=== PATIENT | female | born 1995 | race Caucasian/White ===

== ENCOUNTER → 2016-09-29 | Outpatient (REF) ==
[~2016-09-29] MED LIST: BACTRIM DS 8001 TAB PO; CEFTIN 250250 MG/TAB PO; GILDESS FE 1.5/1 TAB PO
== END ==
LOC: WSOH 08:17 → WSPT 08:30
DX: Z02.1 Encounter for pre-employment examination (principal)

== ENCOUNTER → 2016-10-01 | Outpatient (REF) | LOC: WSOH 12:03 | DX: Z02.89 Encounter for other administrative examinations (principal) ==

== ENCOUNTER → 2016-10-01 | Outpatient (REF) | LOC: WSOH 10:10 | DX: Z23 Encounter for immunization (principal) ==

== ENCOUNTER → 2016-11-02 | Outpatient (REF) | LOC: WSOH 08:51 | DX: Z01.84 Encounter for antibody response examination (principal) ==

== ENCOUNTER 2020-08-12 22:56 | Emergency (ER) | payer BC ==
[~2020-08-12] VITALS: Ht 157.5 cm; Wt 59.1 kg
[2020-08-12 23:36] VITALS: TEMP 98.2
[2020-08-13 02:07] LABS: BASO % 0.1 % (0.0-2.0); GRAN # 8.5 (1.4-6.5); GRAN % 85.4 % (42.2-75.2); HEMATOCRIT 37.7 % (37.0-47.0); HEMOGLOBIN 12.9 g/dl (12.5-16.0); LYMPH # 1.1 (1.2-3.4); LYMPH % 10.9 % (20.0-51.0); MEAN CELL VOLUME 94 fl (80.0-100.0); MEAN CORPUSCULAR HEMOGLOBIN 32 pg (27.0-31.0); MEAN CORPUSCULAR HGB CONC 34 g/dl (33.0-37.0); MEAN PLATELET VOLUME 8.7 fl (7.4-10.4); MONO # 0.3 (0.1-0.6); MONO % 3.2 % (1.7-9.3); PLATELET COUNT 212 K/mm3 (130-400); RED BLOOD COUNT 4.03 M/mm3 (4.10-5.30); REDCELL DISTRIBUTION WIDTH-CV 12.4 % (11.5-14.5)
[2020-08-13 02:21] LABS: ALBUMIN 4.1 gm/dL (3.5-5.0); BILIRUBIN,TOTAL 0.3 mg/dL (0.0-1.0); C-REACTIVE PROTEIN 0.7 mg/dL (0.0-0.9); CREATININE, serum 0.42 (0.52-1.25); POTASSIUM 3.8 mmol/L (3.4-5.0); TOTAL PROTEIN 7.2 gm/dL (6.4-8.2)
[2020-08-13 03:26] VITALS: BP 112/78; PULSE 79
[2021-01-26] MEDS ORDERED: PRENATAL TABLET PO (06:56)
== END 2020-08-13 03:26 | disposition home or self-care (01) ==
LOC: COL.ER 22:56
PROVIDERS: Emergency Medicine
DX: O21.9 Vomiting of pregnancy, unspecified (principal); O26.892 Other specified pregnancy related conditions, second trimester; R51.9 Headache, unspecified; R10.30 Lower abdominal pain, unspecified; Z3A.16 16 weeks gestation of pregnancy; Z88.1 Allergy status to other antibiotic agents
CPT/HCPCS: J2405; J2550; J7030

== ENCOUNTER 2021-01-27 03:17 | Inpatient (IN) | payer BC ==
[2021-01-27] VITALS (45 sets, daily range): BP systolic 87–146; BP diastolic 50–87; PULSE 10–113; TEMP 96.3–98.2
[~2021-01-27] VITALS: Ht 152.5 cm; Wt 76.8 kg
[~2021-01-27 03:17] MED LIST changes: +PRENATAL TABLET PO
--- NOTE | 2021-01-27 03:20 | NUR ---
Ambulatory to unit for labor assessment, accompanied by FOB. Pt reports contractions have continued all day "but now they are stronger". Oriented to room, monitor, plan of care. Questions invited and answered. Pt tense, shaking
[2021-01-27 04:28] LABS: BASO % 0.2 % (0.0-2.0); EOS % 0.2 % (0-4.0); GRAN # 7.4 K/mm3 (1.4-6.5); GRAN % 77.3 % (42.2-75.2); HEMOGLOBIN 12.5 g/dl (12.5-16.0); LYMPH # 1.5 K/mm3 (1.2-3.4); MEAN CELL VOLUME 93 fl (80.0-100.0); MEAN CORPUSCULAR HEMOGLOBIN 33 pg (27.0-31.0); MEAN CORPUSCULAR HGB CONC 35 g/dl (33.0-37.0); MEAN PLATELET VOLUME 9.9 fl (7.4-10.4); MONO # 0.5 K/mm3 (0.1-0.6); MONO % 5.7 % (1.7-9.3); PLATELET COUNT 189 K/mm3 (130-400); RED BLOOD COUNT 3.84 M/mm3 (4.10-5.30); REDCELL DISTRIBUTION WIDTH-CV 12.8 % (11.5-14.5)
[2021-01-27 04:31] LABS: HEMATOCRIT 35.6 % (37.0-47.0)
--- NOTE | 2021-01-27 04:44 | NUR ---
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 See Anesthesia record. Pt moved to sit at edge of bed.
--- NOTE | 2021-01-27 09:19 | NUR ---
RN AT BEDSIDE. SIDE LYING HIP RELEASE.
--- NOTE | 2021-01-27 09:20 | NUR ---
0815 Dr Roles at bedside assessing patient and FHR strip. 0817 SVE 6-7/[address]/-[address] Roles. 0818 Artificial rupture of membranes by Dr Roles. Clear fluid noted. Clean pad/towel under patient. Plan of care discussed. Patient verbalizes understanding.
--- NOTE | 2021-01-27 11:40 | NUR ---
Dr. Kaba at patient bedside assessing patient and FHR strip. Dr. Kaba informs patient of options being section or pitocin. Patient and significant other discuss and decide on section.
[2021-01-28 01:15] VITALS: BP 106/57; PULSE 74
[2021-01-28 05:00] VITALS: BP 118/74; PULSE 75; TEMP 97.9
[2021-01-28 07:09] LABS: HEMATOCRIT 29.8 % (37.0-47.0)
[2021-01-28 07:11] LABS: HEMOGLOBIN 10.3 g/dl (12.5-16.0)
[2021-01-28 09:00] VITALS: BP 106/72; PULSE 75; TEMP 97.6
--- NOTE | 2021-01-28 10:10 | NUR ---
Initial visit; Parents thanked Heat Regulator for offering congratulations and God's blessings for the of their daughter. Heat Regulator thanked family for choosing [facility].
[2021-01-28 17:00] VITALS: BP 124/64; PULSE 60; TEMP 97.6
[2021-01-28 20:00] VITALS: BP 119/73; PULSE 70; TEMP 98
[2021-01-29 07:53] VITALS: BP 126/63; PULSE 83; TEMP 98.1
[2021-01-29 16:20] VITALS: BP 111/70; PULSE 77; TEMP 97.7
[2021-01-29 19:35] VITALS: BP 123/64; PULSE 80; TEMP 97.5
[2021-01-30 07:51] VITALS: BP 133/67; PULSE 99; TEMP 98
[2021-01-30] MEDS ORDERED: IBU800 M1 PO (08:57)
[2021-01-30] MEDS ORDERED: PERCOCET 325 MG1 TA2 PO (08:57)
== END 2021-01-30 15:48 | disposition home or self-care (01) | DRG 788 ==
LOC: LDRO 03:17 → LDR 03:20 → LDRO 04:07 → LDR 04:13 → OB 13:20
PROVIDERS: Obstetrics & Gynecology; ADMIT Obstetrics & Gynecology
PROC: 10D00Z1 Extraction of Products of Conception, Low, Open Approach (ICD-10-PCS; principal; 2021-01-27)
DX: O76 Abnormality in fetal heart rate and rhythm complicating labor and delivery (principal); O62.1 Secondary uterine inertia; O69.81X0 Labor and delivery complicated by cord around neck, without compression, not applicable or unspecified; O90.81 Anemia of the puerperium; D64.9 Anemia, unspecified; Z3A.40 40 weeks gestation of pregnancy; Z37.0 Single live birth; Z23 Encounter for immunization
CPT/HCPCS: OP; J0690; J1885; J2400; J2405; J2795; J7120